=== PATIENT | female | born 1980 | race African-American/Black ===

== ENCOUNTER 2018-01-15 17:00 | Emergency (ER) | payer OTHER ==
[~2018-01-15] VITALS: Ht 167.6 cm; Wt 104.3 kg
--- NOTE | ~2018-01-15 | EKG ---
[address] [address] ELECTROCARDIOGRAM REPORT Name: JUAN BREWSTER Room #: [facility] González#: [id number] Admission: 01/15/18 Attend Phys: Discharge: 01/15/18 Date of : 82 Report #: [id number] THIS REPORT FOR: //name// [facility] ED Test Date: 2018-01-15 Test Time: 17:07:05 Pat Name: JUAN BREWSTER Department: Room: Gender: F [employer]: : 1980 Requested By: Timur Walsh Order Number: [id number] MD: Lucian Garner Measurements Intervals [place] Rate: 83 P: 6 HI: 154 QRS: 68 QRSD: 81 T: 21 QT: 375 QTc: 441 Interpretive Statements Sinus rhythm No previous ECG available for comparison Electronically Signed On 01-15-2018 20:54:13 [employer] by Lucian Garner [email or web address] <ELECTRONICALLY SIGNED> By: Lucian Garner MD 01/15/184 06 1707 Lucian Garner MD /EPI
[~2018-01-15 17:00] MED LIST: ALBUTEROL2.5 MG/0.1 INH; GLUCOPHAGE500 MG PO; HUMULIN N100 UNIT/1 SQ; NOVOLOG100 UNIT/1 SQ
[2018-01-15 17:29] LABS: ABSOLUTE NEUTROPHILS 5.7 thou/uL (1.4-8.2); BASOPHILS 0.9 % (0.0-2.0); HEMATOCRIT 46.1 % (37.0-47.0); HEMOGLOBIN 15.5 gm/dL (12.0-15.0); LYMPHOCYTES 24.3 % (24.0-44.0); MCH 27.5 pg (26.0-34.0); MCHC 33.6 g/dL (28.0-37.0); MCV 81.7 fL (80.0-100.0); MONOCYTES 8.1 % (1.0-8.0); PLATELET COUNT 366 thou/uL (150-400); POLYS 64.7 % (36.0-66.0); RBC 5.64 mil/uL (4.20-5.00); RDW 13.7 % (10.5-14.5); WBC 8.8 thou/uL (4.0-11.0)
[2018-01-15 17:34] LABS: ANION GAP 8 mmol/L (7-16); BUN 13 mg/dL (7-18); CALCIUM 9.3 mg/dL (8.5-10.1); CHLORIDE 103 mmol/L (98-107); CO2 29 mmol/L (21-32); CREATININE 1.1 mg/dL (0.6-1.0); GLUCOSE 347 mg/dL (74-106); POTASSIUM 3.6 mmol/L (3.5-5.1); SODIUM 140 mmol/L (136-145)
[2018-01-15 17:34] LABS: BE(vivo) 0.9 mmol/L (-2 to +3); HCO3 28.1 mmol/L (22.0-26.0); PCO2 VENOUS 54.2 mmHg (41.0-51.0); PO2 VENOUS 44.4 mmHg (35.0-45.0)
[2018-01-15 17:42] LABS: ALBUMIN 3.4 g/dL (3.4-5.0); MAGNESIUM 2.2 mg/dL (1.8-2.4); SGOT 14 U/L (15-37); SGPT 20 U/L (30-65); TOTAL BILIRUBIN 0.4 mg/dL (<0.1-1.0); TOTAL PROTEIN 8.9 g/dL (6.4-8.2); TROPONIN-I <0.06 ng/mL (<0.06)
[2018-01-15] MEDS ORDERED: LISINOPRIL40 MG PO (18:11)
[2018-01-15 18:45] LABS: URINE BILIRUBIN NEGATIVE (Negative); URINE BLOOD TRACE (Negative); URINE CLARITY CLEAR; URINE COLOR YELLOW; URINE GLUCOSE-RANDOM* 3+ (Negative); URINE KETONES NEGATIVE (Negative); URINE LEUKOCYTES-REFLEX NEGATIVE (Negative); URINE NITRITE-REFLEX NEGATIVE (Negative); URINE PROTEIN (DIPSTICK) 1+ (Negative); URINE UROBILINOGEN 0.2 E.U./dl (0.2-1.0)
[2018-01-15 18:48] LABS: BACTERIA-REFLEX None Seen /HPF (None Seen); CASTS None Seen /LPF (None Seen); CRYSTALS None Seen /LPF (None Seen); SQUAMOUS 0-3 Few /LPF (0-3); URINE RBC >20 Many /HPF (0-2); URINE WBC-REFLEX 6-15 Few /HPF (0-5); WBC CLUMPS Few (None Seen)
[2018-01-15 18:55] LABS: AMP/METHAMP Negative (Negative); BARBITURATES Negative (Negative); BENZODIAZEPINES Negative (Negative); COCAINE POSITIVE (Negative); METHADONE Negative (Negative); OPIATES Negative (Negative); PCP POSITIVE (Negative)
[2018-01-15] MEDS ORDERED: HUMULIN R100 UNIT/M SUBQ (19:04)
[2018-01-15] MEDS ORDERED: HUMULIN N100 UNIT/3 SUBQ (19:05)
[2018-01-15 19:19] VITALS: BP 152/72
== END 2018-01-15 19:20 | disposition home or self-care (01) ==
LOC: ER 17:00
PROVIDERS: Emergency Medicine; Physician Assistant
DX: E11.65 Type 2 diabetes mellitus with hyperglycemia (principal); J45.909 Unspecified asthma, uncomplicated; I10 Essential (primary) hypertension; Z98.890 Other specified postprocedural states; Z79.4 Long term (current) use of insulin; Z91.012 Allergy to eggs